=== PATIENT | male | born 1950 | race Caucasian/White ===

== ENCOUNTER → 2021-07-01 | Outpatient (CLI) | payer MEDICARE ==
--- NOTE | 2021-07-01 12:41 | CONS ---
CONSULTATION DATE OF SERVICE: 07/01/2021 This 71-year-old gentleman has been evaluated [facility] for possible obstructive sleep apnea-hypopnea syndrome. HISTORY OF PRESENT ILLNESS/SLEEP-WAKE EVALUATION: Patient's usual sleep schedule is from 11:30 p.m. until 6:30 a.m. Sometimes he has difficulties initiating sleep, but usually no significant problems. He wakes up from sleep 3 times with one episode of nocturia. He sleeps on the back and side positions. During the day, he takes one nap at noon time. [place] Sleepiness Scale is 9. No history of hypnagogic hallucinations, sleep paralysis or cataplexy. PAST MEDICAL HISTORY: Positive for atrial fibrillation, Parkinson's disease, hyperlipidemia, alcohol abuse in the past, prostate carcinoma, back arthritis. PAST SURGICAL HISTORY: Prostatectomy in 2005, loop recorder insertion. MEDICATIONS: 1. Rosuvastatin 5 mg once a day. 2. Carbidopa/levodopa 25/100 three times a day. 3. Amantadine 100 mg once a day. SOCIAL HISTORY: Negative for smoking. History of overuse of alcohol in the past; none at the present time. FAMILY HISTORY: Hypertension, heart problems, cancer. REVIEW OF SYSTEMS: Multiple awakenings from sleep, history of episodes of atrial fibrillation. PHYSICAL EXAMINATION: GENERAL: Pleasant gentleman without distress. VITAL SIGNS: BP 131/84, HR 60, RR 14, height 5 feet 11-1/4 inches, weight 171.8 pounds, body mass index 23.7, temperature 97.1, oxygen saturation at room air 96%. HEENT: PERRLA, EOMI, evaluation of oropharynx showed tongue protrudes midline. Small oropharyngeal airspace. Wide pillars. Big uvula. NECK: Supple, no JVD. Thyroid is not palpable. Neck measures 14-1/4 inches in circumference. LUNGS: Clear to percussion and to auscultation. Good air exchange. No wheezing or rhonchi. HEART: S1, S2 regular. No murmurs, gallops, or rubs. ABDOMEN: Soft and nontender. Bowel sounds are present. No organomegaly appreciated. EXTREMITIES: No clubbing or cyanosis. Slight tremor of hands. WALLPAPER HANGER: Awake, alert, and oriented X3. Cranial nerves 2 to 7 intact. There is no fasciculation or atrophy. noted. No focal deficits observed. IMPRESSION: 1. Multiple awakenings from sleep, small oropharyngeal airspace, wide pillars, big uvula, some sleepiness during the day, patient takes a nap at noon time; possible obstructive sleep apnea-hypopnea syndrome. 2. History of atrial fibrillation. 3. Parkinson's disease. 4. Hyperlipidemia. 5. History of the ETOH abuse in the past. 6. History of prostate carcinoma, status post prostatectomy. 7. Back arthritis. PLAN: 1. Polysomnography for evaluation of patient's breathing during sleep. Obstructive sleep apnea-hypopnea syndrome could be a significant factor for developing of atrial fibrillation. 2. CPAP/BiPAP titration if sleep study confirms obstructive sleep apnea-hypopnea syndrome. 3. Preferable position during sleep on the side. 4. No driving if patient feels any sleepiness. 5. I will see patient for follow up visit to explain results of testing and following plan. Thank you very much for referring this patient for consultation. Sincerely, Gerald Nicole MD, PhD, FAASM Diplomat of [employer] Sleep Medicine Board of [place] [facility] [place] MMODL / MARYN: [id number] /
== END ==
LOC: SLEEP 11:13
PROVIDERS: ATTEND Internal Medicine
DX: G47.8 Other sleep disorders (principal); E78.5 Hyperlipidemia, unspecified; I48.91 Unspecified atrial fibrillation; G20 Parkinson's disease; Z85.46 Personal history of malignant neoplasm of prostate; Z90.79 Acquired absence of other genital organ(s); M47.9 Spondylosis, unspecified; Z72.89 Other problems related to lifestyle
CPT/HCPCS: 99211

== ENCOUNTER → 2022-01-03 | Outpatient (CLI) | payer MEDICARE ==
[2022-01-03 18:44] LABS: African American GFR (CKD) 103.1 (60.0-200.0); Anion Gap 8.3 mmol/L (10.00-18.00); Blood Urea Nitrogen 16.4 mg/dL (9.0-27.0); Carbon Dioxide 29.5 mmol/L (20.0-27.5)
[2022-01-03 19:11] LABS: HCT 42.9 % (39.6-50.0); HGB 14.5 g/dL (13.0-17.0); MCH 30.8 pg (27.0-32.0); MCHC 33.8 g/dL (32.0-37.0); MCV 91.1 fL (80.0-97.0); Mean Platelet Volume 11.3 fL (9.5-12.2); NRBC Per 100 WBC 0 /100 WBCS (0.0-0.0); Platelet Count 193 X 10*3/uL (140-440); RBC 4.71 X 10*6/uL (4.40-5.60); RDW 13.3 % (11.5-14.5); WBC 6.11 X 10*3/uL (4.50-10.00)
== END | disposition home or self-care (01) ==
LOC: LABPAT 12:17
PROVIDERS: ATTEND Internal Medicine Clinical Cardiac Electrophysiology
DX: Z01.812 Encounter for preprocedural laboratory examination (principal); I48.0 Paroxysmal atrial fibrillation; R55 Syncope and collapse
CPT/HCPCS: 80051; 82565; 84520; 85027

== ENCOUNTER → 2023-02-23 | Outpatient (CLI) | payer MEDICARE ==
[2023-02-23 15:34] LABS: Albumin 4.4 g/dL (3.8-4.9); Albumin/Globulin Ratio 2.2 Ratio (1.60-3.17); Bilirubin, Conjugated 0.47 mg/dL (0.20-0.40); Bilirubin,Unconjugated 1.53 mg/dL (0.20-1.00); Total Protein 6.4 g/dL (6.2-8.2)
[2023-02-23 15:53] LABS: Hepatitis B Surface Antigen Nonreactive
[2023-02-23 15:54] LABS: Hepatitis A Antibody IgM Nonreactive; Hepatitis B Core IgM Nonreactive; Hepatitis C IgG Antibody Nonreactive
== END | disposition home or self-care (01) ==
LOC: LABWHC1 10:18
PROVIDERS: ATTEND Family Medicine
DX: R17 Unspecified jaundice (principal)
CPT/HCPCS: 36415; 80074; 80076; 83010; 83615

== ENCOUNTER → 2024-07-17 | Outpatient (CLI) | payer MEDICARE ==
[2024-07-17 15:25] LABS: HCT 45.2 % (39.6-50.0); HGB 14.8 g/dL (13.0-17.0); MCH 30.6 pg (27.0-32.0); MCHC 32.7 g/dL (32.0-37.0); MCV 93.4 FL (80.0-97.0); Mean Platelet Volume 11.2 FL (9.5-12.2); NRBC Per 100 WBC 0 X 10*3/uL (0.00-0.01); Platelet Count 194 X 10*3/uL (140-440); RBC 4.84 X 10*6/uL (4.40-5.60); RDW 13.2 % (11.5-14.5); WBC 5.52 X 10*3/uL (4.50-10.00)
[2024-07-17 16:15] LABS: Blood Urea Nitrogen 22.4 mg/dL (9.0-27.0); Carbon Dioxide 25.5 mmol/L (21.6-31.8); Chloride 103 mmol/L (96-109); Potassium 4.3 mmol/L (3.5-5.5); Sodium 140 mmol/L (135-145)
== END | disposition home or self-care (01) ==
LOC: LABWHC1 10:21
PROVIDERS: ATTEND Internal Medicine Clinical Cardiac Electrophysiology
DX: Z01.812 Encounter for preprocedural laboratory examination (principal); I48.0 Paroxysmal atrial fibrillation
CPT/HCPCS: 36415; 80051; 82565; 84520; 85027

== ENCOUNTER 2024-08-27 05:39 | Day surgery (SDC) | payer MEDICARE ==
[2024-08-27] MEDS ORDERED: LIDOCAINE 1% (10MG/ML) FOR IV START INTRADERMA PRN (05:54)
[2024-08-27] MEDS: SODIUM CHLORIDE 0.9% 1,000 ML IV SCH (06:44)
[2024-08-27 06:45] LABS: Basophils # (A) 0.04 10*3/uL (0.00-0.10); Basophils % (A) 0.9 %; Eosinophils % (A) 4.3 %; Lymphocytes # (A) 1.15 10*3/uL (0.90-5.00); Lymphocytes % (A) 24.5 %; MCH 30.5 pg (27.0-32.0); MCHC 33.3 g/dL (32.0-37.0); MCV 91.6 fL (80.0-97.0); Monocytes # (A) 0.41 10*3/uL (0.20-1.00); Monocytes % (A) 8.7 %; Neutrophils # (A) 2.89 10*3/uL (1.80-7.70); Neutrophils % (A) 61.4 %; Platelet Count 167 10*3/uL (140-440); RBC 4.91 10*6/uL (4.40-5.60); RDW 13.2 % (11.5-14.5)
[2024-08-27] MEDS: IV FLUID CONTINUATION 1,000 ML IV ONE (06:45)
[2024-08-27 06:59] LABS: African American GFR (CKD) >90 (>60 ml/min/1.73 sqM); Anion Gap 7 mmol/L; Blood Urea Nitrogen 20 mg/dL (9-20); Calcium 9.4 mg/dL (8.4-10.2); Carbon Dioxide 29 mmol/L (22-30); Chloride 104 mmol/L (98-107); Glucose 105 mg/dL (74-99); Non-African American GFR(CKD) 88 (>60 ml/min/1.73 sqM); Potassium 3.6 mmol/L (3.5-5.1); Sodium 140 mmol/L (137-145)
[2024-08-27] MEDS ORDERED: HEPARIN SODIUM,PORCINE 5,000 UNIT/ML 1 ML VIAL ONE (07:27)
[2024-08-27] MEDS ORDERED: fentaNYL (PF) 50 MCG/ML 2 ML AMP ONE (07:27)
[2024-08-27] MEDS ORDERED: SUCCINYLCHOLINE CHLORIDE 200 MG/10 ML VIAL IV ONE (07:27)
[2024-08-27] MEDS ORDERED: ROCURONIUM 10 MG/ML (5 ML VIAL) IV ONE (07:27)
[2024-08-27] MEDS ORDERED: PHENYLEPHRINE-0.9% NACL SYG 1,000 MCG/10 ML SYRINGE ONE (07:27)
[2024-08-27] MEDS ORDERED: HEPARIN SODIUM,PORCINE 10,000 UNIT/ML 1 ML VIAL ONE (07:27)
[2024-08-27] MEDS ORDERED: ONDANSETRON 4 MG/2 ML VIAL ONE (07:27)
[2024-08-27] MEDS ORDERED: LIDOCAINE 1% INJ 10MG/ML (20 ML MDV) ONE (07:27)
[2024-08-27] MEDS ORDERED: PROPOFOL 10 MG/ML 20 ML VIAL IV ONE (07:27)
[2024-08-27] MEDS ORDERED: PHENYLEPHRINE 10 MG/ML VIAL ONE (07:27)
[2024-08-27] MEDS: HEPARIN SODIUM,PORCINE 10,000 UNIT in SODIUM CHLORIDE 0.9% 1,000 ML IRRIGATION ONE (08:11)
[2024-08-27] MEDS: HEPARIN SODIUM,PORCINE (1 ML) 2,500 UNIT in SODIUM CHLORIDE 0.9% 250 ML IRRIGATION ONE (08:11)
[2024-08-27] MEDS: HEPARIN SOD,PORK IN 0.45% NACL 25,000 UNIT in 0.45% NACL 1 250ML.BAG IV ONE (08:11)
[2024-08-27] MEDS: LIDOCAINE 1% INJ 10MG/ML (20 ML MDV) SQ ONE (08:20)
[2024-08-27] MEDS: IOPAMIDOL-370 100ML BTL INJ ONE (09:59)
--- NOTE | 2024-08-27 10:50 | P.HPCAR ---
History of Present Illness This is Dr. Flower dictating an H/P on this patient The patient was interviewed and examined IMPRESSION / ASSESSMENT: Atrial fibrillation with RVR Recurrent syncope and dizzy spells Loop monitor interrogation reveals recurrent paroxysms of A-fib with RVR PLAN: A-fib ablation Continue Eliquis HPI Patient continues to have episodes of palpitations. He had an episode of palpitations yesterday once again associate with dizziness Denies any chest discomfort no fever chills cough expectoration ROS: No fever chills or rigors, no cough, phlegm or expectoration, no nausea, vomiting or diarrhea, no hematuria, dysuria, no musculoskeletal complaints, no strokes or seizures, no skin lesions. EXAMINATION: Afebrile blood pressure 111/73 mmHg pulse rate in the 70s Heart sounds S1-S2 normal Breath sounds are clear No lower extremity edema No JVD REVIEW OF LABS, ECG & MEDICAL DATA White count 4.7 thousand, hemoglobin 15, platelet count 167,000, all normal Electrolytes normal Renal function normal TSH 2.5, normal Physical Exam Vitals: Vital Signs Temp Pulse Resp BP Pulse Ox 08/27/24 10:35 97.5 F L 70 14 111/73 98 08/27/24 06:46 98.2 F 74 16 107/86 95 Intake and Output 08/26/24 08/27/24 08/27/24 22:59 06:59 14:59 Intake Total 20 890.3 Balance 20 890.3 Intake: IV 20 890.3 Other: Weight 75 kg Past Medical History Past Medical History: Atrial Fibrillation, Cancer, Musculoskeletal Disorder, Neurologic Disorder Additional Past Medical History / Comment(s): Parkinson's disease, prostate cancer 2007 - had surg., back pain, see Dr. Folwer H & P History of Any Multi-Drug Resistant Organisms: None Reported Past Surgical History: Heart Catheterization, Prostate Surgery Additional Past Surgical History / Comment(s): loop recorder implant & removal, prostatectomy, colonoscopy Past Anesthesia/Blood Transfusion Reactions: No Reported Reaction Smoking Status: Never smoker Physical Examination Vital Signs Temp Pulse Resp BP Pulse Ox 08/27/24 10:35 97.5 F L 70 14 111/73 98 08/27/24 06:46 98.2 F 74 16 107/86 95 Intake and Output 08/26/24 08/27/24 08/27/24 22:59 06:59 14:59 Intake Total 20 890.3 Balance 20 890.3 Intake: IV 20 890.3 Other: Weight 75 kg Results 08/27/24 06:10 08/27/24 06:10 CBC 08/27/24 Range/Units 06:10 WBC 4.70 (4.50-10.00) 10*3/uL RBC 4.91 (4.40-5.60) 10*6/uL Hgb 15.0 (13.0-17.0) g/dL Hct 45.0 (39.6-50.0) % Plt Count 167 (140-440) 10*3/uL Comprehensive Metabolic Panel 08/27/24 Range/Units 06:10 Sodium 140 (137-145) mmol/L Potassium 3.6 (3.5-5.1) mmol/L Chloride 104 (98-107) mmol/L Carbon Dioxide 29 (22-30) mmol/L BUN 20 (9-20) mg/dL Creatinine 0.84 (0.66-1.25) mg/dL Glucose 105 H (74-99) mg/dL Calcium 9.4 (8.4-10.2) mg/dL Current Medications Generic Name Dose Route Start Last Admin Trade Name Freq PRN Reason Stop Dose Admin Acetaminophen 650 mg 08/27/24 10:46 Acetaminophen Tab 325 Mg Tab PO 09/26/24 10:45 Q6HR PRN Mild Pain (Scale 1 to 3) Amantadine HCl 100 mg 08/27/24 21:00 Amantadine Hcl 100 Mg Cap PO 09/26/24 20:59 BID DUGALS Apixaban 5 mg 08/27/24 21:00 Apixaban 5 Mg Tab PO 09/26/24 20:59 BID DUGLAS Protocol Carbidopa/Levodopa 1 each 08/27/24 16:00 Carbidopa-Levodopa 25-100 Mg 1 Each Tab PO 09/26/24 15:59 TID DUGLAS Carbidopa/Levodopa 1 each 08/27/24 16:00 Carbidopa-Levodopa Er 25-100mg 1 Each Tablet.Er PO 09/26/24 15:59 TID DUGLAS Acetaminophen 1,000 mg/ IV 100 mls @ 400 mls/hr 08/27/24 10:46 Solution IVPB 08/27/24 11:00 ONCE ONE Lidocaine HCl 0.1 ml 08/27/24 05:54 Lidocaine 1% (10mg/Ml) For Iv Start INTRADERMA 09/26/24 05:53 PER PROTOCOL PRN IV Start Modafinil 50 mg 08/28/24 09:00 Modafinil 100 Mg Tab PO 09/27/24 08:59 QAM DUGLAS Non-Formulary Medication 5 mg 08/28/24 09:00 Rosuvastatin Calcium [Rosuvastatin Calcium] PO 09/27/24 08:59 DAILY DUGLAS Sodium Chloride 12 ml 08/27/24 10:46 Sodium Chloride 0.9% Flush 10 Ml Syringe IV 09/26/24 10:45 Q12HR PRN Line Flush Intake and Output 08/26/24 08/27/24 08/27/24 22:59 06:59 14:59 Intake Total 20 890.3 Balance 20 890.3 Intake: IV 20 890.3 Other: Weight 75 kg 08/27/24 06:10 08/27/24 06:10
--- NOTE | 2024-08-27 11:04 | P.EPPROC ---
- EP Procedure Note Electrophysiology Procedure Note: PROCEDURE A. fib ablation DIAGNOSIS Paroxysmal atrial fibrillation, symptomatic, refractory to therapy RESULT No left atrial appendage mass seen on intracardiac echo, mildly thickened pericardium without effusion Successful A. fib ablation/pulmonary vein isolation of all veins using cryo- ablation Complete entrance block in all 4 veins confirmed No evidence for phrenic nerve injury left atrial septal ablation Esophageal deflection YES, extreme left-sided esophagus PROCEDURE DETAILS Written informed consent prior to procedure. Patient brought to the EP lab. General anesthesia given. Heparin administered. A city maintained above 300 seconds Both groins prepped and draped per protocol and venous sheaths placed. Esophagus intubated, circa catheter for temperature monitoring an endoscope for possible esophageal deflection. Phrenic nerve monitoring performed. Esophageal temperature monitoring performed. Esophageal deflection performed if circa catheter overlapping with the balloon or circa temperature less than 27.5°C Intracardiac echocardiography performed. Pericardium evaluated. Left atrial appendage evaluated. Left atrium evaluated along with pulmonary veins Transseptal catheterization performed under fluoroscopic guidance and intracardiac echo guidance Cryoablation sheath exchanged, balloon catheter along with achieve catheter placed in the left atrium. Pulmonary veins isolated in the following sequence: Left superior pulmonary vein followed by left inferior pulmonary vein, followed by right inferior pulmonary vein and lastly right superior pulmonary vein. Phrenic nerve stimulation along with capture thresholds within the SVC and right superior pulmonary vein to identify the phrenic nerve proximity to the cryo- balloon. Pulmonary veins isolated and confirmed with entrance and exit block. Phrenic nerve integrity confirmed at the end of the procedure Ablation of the left atrial septum performed with cannulation of the superior branch of the right inferior to achieve ablation of the posterior septum of the left atrium. Ablation of electrograms confirmed Diagnostic catheters for the high right atrium, His bundle, coronary sinus placed. LA and RA pressures recorded LA pressure: Diagnostic EP study with coronary sinus pacing and recording Baseline measurements: IL 170, QT 448, QRS 112 and sinus cycle length 1119 AV node Wenckebach block 440 Sinus node recovery x 1079. Corrected sinus node recovery time within normal limits Venous sheaths were removed and hemostasis assured with a closure device. Patient extubated and transferred to recovery Increase procedural time Scoliosis and a rotated heart. Transseptal catheterization was difficult but after careful manipulation of the needle/sheath system, the fossa ovalis was punctured in the mid mid position successfully. This took extra effort and time using intracardiac echo and fluoroscopic guidance During ablation multiple attempts had to be made to move the esophagus a safe distance of the from the pulmonary vein draining cryoablation, to avoid excessive thermal cooling of the esophagus This took extra time and effort to keep the esophagus a safe distance away from the cryoablation balloon. Extreme left-sided esophagus Multiple attempts needed for successful cryoablation isolation of the pulmonary vein left side on account of cooling of the esophagus. Multiple abbreviated lesions were delivered to minimize thermal cooling. To avoid cryo stacking, lesions were delivered first in the superior followed by the inferior left pulmonary veins in alternating fashion. PROCEDURES PERFORMED Diagnostic EP study CS pacing and recording Left and right transseptal catheterization Catheter the mapping of the tachycardia Intracardiac echocardiography Pulmonary vein isolation with transseptal and comprehensive EPS, 80274 Extended procedure duration Drug infusion, +[id number] Linear ablation, left atrium, +[id number]
[2024-08-27] MEDS: ACETAMINOPHEN IV (For NPO) 1,000 MG in EMPTY BAG 1 BAG IVPB ONE (12:14)
[2024-08-27] MEDS: LACTATED RINGERS 1,000 ML IV SCH (16:39)
[2024-08-27] MEDS: CARBIDOPA-LEVODOPA ER 25-100MG 1 EACH TABLET.ER PO SCH (17:00)
[2024-08-27] MEDS: CARBIDOPA-LEVODOPA 25-100 MG 1 EACH TAB PO SCH (17:00)
[2024-08-27] MEDS: APIXABAN 5 MG TAB PO SCH (21:27)
[2024-08-27] MEDS: ACETAMINOPHEN TAB 325 MG TAB PO PRN (21:32)
[2024-08-28 07:40] VITALS: BP 120/80; PULSE 81; RESP 16; TEMP 98.1
[2024-08-28] MEDS: ATORVASTATIN 10 MG TAB PO SCH (09:10)
[2024-08-28] MEDS: modafiniL 100 MG TAB PO SCH (09:11)
--- NOTE | 2024-08-29 10:54 | P.DS ---
Providers Attending physician: Andrae Flower Primary care physician: [facility] Course: Patient underwent an EP study and A-fib ablation yesterday. He is doing well postoperatively. Localized left-sided chest wall discomfort that does not get worse with taking a deep breath. 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 Flower in a week Plan - Discharge Summary Discharge Rx Participant: No New Discharge Prescriptions: Continue RX: Carbidopa-Levodopa 25-100 mg [Sinemet 25-100 mg] 1 tab PO TID RX: Apixaban [Eliquis] 5 mg PO BID RX: modafiniL [Provigil] 50 mg PO QAM RX: amantadine HCL [Amantadine] 100 mg PO BID RX: Rosuvastatin Calcium 5 mg PO DAILY RX: Carbidopa-Levodopa ER 25-100Mg [Sinemet CR 25-100 mg] 1 tab PO TID Discharge Medication List RX: Carbidopa-Levodopa 25-100 mg [Sinemet 25-100 mg] 1 tab PO TID 01/10/22 [History] RX: Carbidopa-Levodopa ER 25-100Mg [Sinemet CR 25-100 mg] 1 tab PO TID 01/10/22 [History] RX: Rosuvastatin Calcium 5 mg PO DAILY 01/10/22 [History] RX: amantadine HCL [Amantadine] 100 mg PO BID 01/10/22 [History] RX: Apixaban [Eliquis] 5 mg PO BID 08/23/24 [History] RX: modafiniL [Provigil] 50 mg PO QAM 08/23/24 [History] Follow up Appointment(s)/Referral(s): Andrae Flower MD [STAFF PHYSICIAN] - 1 Week (Office will call with follow up appointment date and time) Patient Instructions/Handouts: Cardiac Ablation (DC), Cardiac Ablation (GEN) Activity/Diet/Wound Care/Special Instructions: Post EP study - Ablation instructions 1. Keep access sites dry for 2 days. 2. No heavy lifting or straining for 2 days. 3. Avoid bending the hips repeatedly for 2 days. 4. You may go up and down stairs slowly 5. If you have had an ablation for atrial fibrillation or atrial flutter and are on a blood thinner, do not stop the blood thinner even temporarily for 3 months post ablation Call if the following is noted 1. Bleeding, increasing swelling or pain at the access sites. 2. Increasing chest discomfort, especially upon taking a deep breath. 3. Increasing shortness of breath, at rest or with exertion. 4. Undue cough / phlegm 5. Difficulty or pain while swallowing. 6. Pain or change in color in the extremities. 7. Fever, chills, rigors. 8. Increasing headache or neurologic symptoms. 9. Dizziness, fainting, palpitations For patients who have undergone an A-fib ablation /atrial flutter ablation Strict instruction; do NOT stop anticoagulation (Eliquis/Xarelto/Pradaxa) for the next 2 months temporarily, for any elective, nonurgent surgery. This increases the risk of stroke, post A-fib ablation Discharge Disposition: HOME SELF-CARE
== END 2024-08-28 10:56 | disposition home or self-care (01) ==
LOC: CATHEP 05:39 → 6NMEDSUR 10:14 → CATHEP 08-28 10:56
PROVIDERS: ATTEND Internal Medicine Clinical Cardiac Electrophysiology
DX: I48.0 Paroxysmal atrial fibrillation (principal); I44.1 Atrioventricular block, second degree; G20.A1 Parkinson's disease without dyskinesia, without mention of fluctuations; R00.2 Palpitations; R55 Syncope and collapse; R42 Dizziness and giddiness; Q24.8 Other specified congenital malformations of heart; M41.9 Scoliosis, unspecified; Z79.01 Long term (current) use of anticoagulants; Z79.899 Other long term (current) drug therapy; Z85.46 Personal history of malignant neoplasm of prostate
CPT/HCPCS: 93656; 86900; 86901; 80048; 84443; 85025; 86850; C1894; C1769 ×3; C1760 ×3; C1730 ×2; C1759; C1733; C1766; J0330; J1644 ×3; J2405; J2003; J3010; J0131; J2704; Q9967; J2371 ×2